=== PATIENT | male | born 1955 | race Caucasian/White ===

== ENCOUNTER → 2017-12-18 07:02 | Outpatient (CLI) | payer OTHER, SELFPAY ==
[2017-12-18 09:00] LABS: Hemoglobin A1c 7.2 % (4.2-6.3)
== END ==
PROVIDERS: Family Provider Family Medicine; PCP Family Medicine; Visit Provider Family Medicine
DX: E11.9 Type 2 diabetes mellitus without complications (principal)
CPT/HCPCS: 36415; 83036

== ENCOUNTER → 2018-06-23 06:58 | Outpatient (CLI) | payer OTHER, SELFPAY ==
[2018-06-23 07:42] LABS: ALB/GLOB Ratio 0.8 RATIO (0.9-2.4); AST(SGOT) 16 U/L (15-37); Alanine Aminotransfer ALT/SGPT 20 U/L (16-61); Albumin, Serum 3.2 g/dL (3.2-5.0); Alkaline Phosphatase 72 U/L (45-117); Anion Gap 10 (5-15); BUN 27 mg/dL (7-18); BUN/Creat Ratio 19.4 RATIO (10-20); Calcium,Total 8.8 mg/dL (8.5-10.1); Chloride 108 mmol/L (98-107); Cholesterol 113 mg/dL (200); Creatinine, Serum 1.39 mg/dL (0.70-1.30); EST Glomerular Filtration Rate 55 mL/min (>60); Est Glom Filt Rate - Afr Amer 66 mL/min (>60); Globulin 4.2 g/dL (2.2-4.2); Glucose 170 mg/dL (74-106); High Density Lipoprotein 46 mg/dL; Potassium 4.7 mmol/L (3.5-5.1); Protein, Total 7.4 g/dL (6.4-8.2); Sodium Level 141 mmol/L (136-145); Triglycerides 169 mg/dL; Very Low Density Lipoprotein 34 mg/dL (5-40)
[2018-06-23 07:47] LABS: Hemoglobin A1c 6.7 % (4.2-6.3)
== END ==
PROVIDERS: Family Provider Family Medicine; PCP Family Medicine; Referring Provider Family Medicine; Visit Provider Family Medicine
DX: E11.9 Type 2 diabetes mellitus without complications (principal); E78.5 Hyperlipidemia, unspecified
CPT/HCPCS: 36415; 80053; 80061; 83036

== ENCOUNTER → 2020-01-07 | Outpatient (CLI) | payer OTHER, SELFPAY ==
[2019-12-15 08:41] VITALS: BMI 52.0
[2020-01-07 13:48] LABS: ALB/GLOB Ratio 0.8 RATIO (0.9-2.4); AST(SGOT) 19 U/L (15-37); Alanine Aminotransfer ALT/SGPT 30 U/L (16-61); Albumin, Serum 3.3 g/dL (3.2-5.0); Alkaline Phosphatase 67 U/L (45-117); Anion Gap 7 (5-15); BUN 27 mg/dL (7-18); BUN/Creat Ratio 22.7 RATIO (10-20); Calcium,Total 8.8 mg/dL (8.5-10.1); Chloride 109 mmol/L (98-107); Cholesterol 155 mg/dL (200); Creatinine, Serum 1.19 mg/dL (0.70-1.30); EST Glomerular Filtration Rate 65 mL/min (>60); Est Glom Filt Rate - Afr Amer 79 mL/min (>60); Globulin 3.9 g/dL (2.2-4.2); Glucose 133 mg/dL (74-106); High Density Lipoprotein 44 mg/dL; Potassium 4.4 mmol/L (3.5-5.1); Protein, Total 7.2 g/dL (6.4-8.2); Sodium Level 139 mmol/L (136-145); Triglycerides 130 mg/dL; Very Low Density Lipoprotein 26 mg/dL (5-40)
[2020-01-07 14:16] LABS: Microalbumin,Random Urine 43.8 mg/L (NO RANGE EST.); Microalbumin:Creatinine Ratio 44.5 mg/g CRE (<30 mg/g CRE)
== END | disposition home or self-care (01) ==
LOC: LABSPEC 11:27
PROVIDERS: PCP Family Medicine; Referring Provider Family Medicine; Visit Provider Family Medicine
DX: E11.9 Type 2 diabetes mellitus without complications (principal)
CPT/HCPCS: 80053; 80061; 82043; 82570

== ENCOUNTER → 2020-12-19 09:01 | Outpatient (CLI) | payer OTHER, SELFPAY ==
[2020-12-19 08:30] VITALS: BMI 50.3
[2020-12-19 12:50] LABS: ALB/GLOB Ratio 0.8 RATIO (0.9-2.4); AST(SGOT) 15 U/L (15-37); Alanine Aminotransfer ALT/SGPT 20 U/L (16-61); Albumin, Serum 3.3 g/dL (3.2-5.0); Alkaline Phosphatase 70 U/L (45-117); Anion Gap 6 (5-15); BUN 18 mg/dL (7-18); BUN/Creat Ratio 17.1 RATIO (10-20); Calcium,Total 8.7 mg/dL (8.5-10.1); Chloride 110 mmol/L (98-107); Cholesterol 172 mg/dL (200); Creatinine, Serum 1.05 mg/dL (0.70-1.30); EST Glomerular Filtration Rate 75 mL/min (>60); Est Glom Filt Rate - Afr Amer 91 mL/min (>60); Glucose 116 mg/dL (74-106); High Density Lipoprotein 46 mg/dL; Potassium 4.3 mmol/L (3.5-5.1); Protein, Total 7.3 g/dL (6.4-8.2); Sodium Level 139 mmol/L (136-145); Triglycerides 140 mg/dL; Very Low Density Lipoprotein 28 mg/dL (5-40)
== END ==
PROVIDERS: PCP Family Medicine; Referring Provider Family Medicine; Visit Provider Family Medicine
DX: E11.9 Type 2 diabetes mellitus without complications (principal)
CPT/HCPCS: 36415; 80053; 80061

== ENCOUNTER → 2021-04-24 12:53 | Outpatient (CLI) | payer OTHER, SELFPAY ==
[2021-04-23 14:05] VITALS: BMI 50.3
--- NOTE | 2021-04-24 12:55 | CT_ITS ---
STUDY: CT BRAIN WITHOUT CONTRAST REASON FOR EXAM: Male, 65 years old. head injury, headache, anticoagulation -- STAT RADIATION DOSAGE (If Supplied By Facility): CTDIvol = ( 44.99 ) mGy, DLP = ( 863.60 ) mGycm TECHNIQUE: Transaxial CT imaging of the brain was performed without administration of intravenous contrast material. Individualized dose optimization techniques were used for this CT. COMPARISON: No relevant priors. FINDINGS: Normal soft tissue structures. Normal calvarium. Normal size ventricles and extra-axial spaces for the patient''s age. Normal white matter tracts of the cerebral hemispheres. Normal basal ganglia and thalami. Normal brainstem. Normal cerebellum. There is no intracranial hemorrhage. There are no findings of an acute ischemic infarction. Normal visualized paranasal sinuses. CT/Brain/Head without Contrast IMPRESSION: Normal unenhanced CT scan of the brain. Electronically Signed: Ar Parisi MD at 13:13 EDT Tel , Service support ,
== END ==
PROVIDERS: PCP Family Medicine; Referring Provider Physician Assistant; Visit Provider Physician Assistant
DX: R51.9 Headache, unspecified (principal); S09.90XA Unspecified injury of head, initial encounter; R42 Dizziness and giddiness
CPT/HCPCS: 70450

== ENCOUNTER → 2021-08-28 | Outpatient (CLI) | payer MEDICARE, SELFPAY | END | disposition home or self-care (01) | LOC: LABSPEC 10:21 | PROVIDERS: PCP Family Medicine; Visit Provider Physician Assistant Surgical | DX: U07.1 COVID-19 (principal) | CPT/HCPCS: 87635; U0005; U0003 ==

== ENCOUNTER 2021-12-18 09:33 | Outpatient (CLI) | payer MEDICARE, SELFPAY ==
[2021-12-18 12:16] LABS: Absolute Lymphocyte Count 1.54 X10^3/uL (0.83-4.51); Absolute Neutrophil Count 5.2 X10^3/uL (2.0-7.7); Basophil# 0.04 X10^3/uL; Basophil% 0.5 % (0-1); Eosinophil# 0.13 X10^3/uL; Eosinophils% 1.7 % (0-5); Hematocrit 47.3 % (40-54); Lymphocyte # 1.54 X10^3/ul (0.83-4.51); Lymphocyte % 20.7 % (19-41); Mean Corp Hgb Conc 33.8 g/dL (32-36); Mean Corpuscular Hgb 30.6 pg (27.0-32.0); Mean Corpuscular Volume 90.4 fL (80-94); Mean Platelet Vol. 11.6 fl (6.2-12.0); Monocyte# 0.51 X10^3/uL; Monocyte% 6.8 % (0-10); NRBC Flagged by Analyzer 0 % (0-5); Neutrophil % 69.9 % (47-70); Platelet Count 187 K/mm3 (150-450); RBC Distribution Width CV 12.9 % (11.6-14.6); RBC Distribution Width SD 42.6 fl (35.1-43.9); Red Blood Count 5.23 M/mm3 (4.6-6.2); White Blood Count 7.5 K/mm3 (4.4-11.0)
[2021-12-18 12:32] LABS: AST(SGOT) 18 U/L (15-37); Alanine Aminotransfer ALT/SGPT 19 U/L (16-61); Albumin, Serum 3.4 g/dL (3.2-5.0); Alkaline Phosphatase 54 U/L (45-117); Anion Gap 5 (5-15); BUN 22 mg/dL (7-18); BUN/Creat Ratio 20.4 RATIO (10-20); Calcium,Total 8.7 mg/dL (8.5-10.1); Chloride 110 mmol/L (98-107); Cholesterol 116 mg/dL (200); Creatinine, Serum 1.08 mg/dL (0.70-1.30); EST Glomerular Filtration Rate 73 mL/min (>60); Est Glom Filt Rate - Afr Amer 88 mL/min (>60); Globulin 3.5 g/dL (2.2-4.2); Glucose 159 mg/dL (74-106); High Density Lipoprotein 48 mg/dL; Potassium 3.9 mmol/L (3.5-5.1); Protein, Total 6.9 g/dL (6.4-8.2); Sodium Level 138 mmol/L (136-145); Triglycerides 148 mg/dL; Very Low Density Lipoprotein 30 mg/dL (5-40)
== END 2021-12-18 23:59 | disposition home or self-care (01) ==
LOC: BIMLAB 09:34
PROVIDERS: PCP Family Medicine; Referring Provider Family Medicine; Visit Provider Family Medicine
DX: E11.9 Type 2 diabetes mellitus without complications (principal)
CPT/HCPCS: 36415; 80053; 80061; 82043; 82570; 85025

== ENCOUNTER → 2022-03-21 | Outpatient (CLI) | payer MEDICARE, SELFPAY ==
--- NOTE | 2022-03-21 08:05 | RAD_ITS ---
STUDY: X-RAY - RIGHT SHOULDER REASON FOR EXAM: Male, 66 years old. PAIN TECHNIQUE: 4 view(s) of the shoulder. COMPARISON: None. FINDINGS: There is moderate degenerative arthrosis of the glenohumeral articulation. Prior resection of the distal portion of the right clavicle. Normal acromion. Normal humeral head and visualized proximal humerus. The soft tissue structures are unremarkable. Normal visualized pulmonary apex. RAD/Shoulder min 2 Views IMPRESSION: Moderate degree of joint space narrowing of the glenohumeral joint. Electronically Signed: Chang Peters MD at 15:14 EDT ,
--- NOTE | 2022-03-21 08:10 | RAD_ITS ---
STUDY: X-RAY - LEFT SHOULDER REASON FOR EXAM: Male, 66 years old. Shoulder pain TECHNIQUE: 4 view(s) of the shoulder. COMPARISON: None. FINDINGS: There is moderate degenerative arthrosis of the glenohumeral articulation. There is hypertrophic osteoarthrosis of the acromioclavicular joint with inferior osseous spur formation. Normal acromion. Normal humeral head and visualized proximal humerus. The soft tissue structures are unremarkable. Normal visualized pulmonary apex. RAD/Shoulder min 2 Views IMPRESSION: Degenerative changes of the left glenohumeral joint and left acromioclavicular joint. Electronically Signed: Chang Peters MD at 15:13 EDT ,
== END | disposition home or self-care (01) ==
LOC: RAD 07:59
PROVIDERS: PCP Family Medicine; Referring Provider Family Medicine; Visit Provider Family Medicine
DX: M25.511 Pain in right shoulder (principal); M25.512 Pain in left shoulder
CPT/HCPCS: 73030

== ENCOUNTER → 2022-06-19 | Outpatient (CLI) | payer MEDICARE, SELFPAY ==
[2022-06-19 09:35] LABS: Bacteria 0 SEEN /hpf (None Seen); Mucous, Urine 0 SEEN /hpf (<or=2+); Red Blood Cells-Urine 0 SEEN /hpf (0-5); Squamous Epithelial Cells - UA 0 SEEN /hpf (0-5); White Blood Cells 0 SEEN /hpf (0-5)
[2022-06-19 13:00] LABS: Color, Urine Yellow (Yellow); Glucose, Dipstick Normal (Normal); Ketone-Dipstick Negative (Negative); Leukocyte Esterase-Dipstick 25 /ul (Negative); Nitrite-Dipstick Negative (Negative); Occult Blood-Urine Negative /ul (Negative); Protein-Dipstick Negative (Negative); Urine Bilirubin Dipstick Negative (Negative); Urine Clarity Clear (Clear); Urine Urobilinogen Normal (Normal)
[2022-06-20 14:41] LABS: Microalbumin,Random Urine 6.7 mg/L (NO RANGE EST.); Microalbumin:Creatinine Ratio 22.3 mg/g CRE (<30 mg/g CRE)
== END | disposition home or self-care (01) ==
LOC: LABSPEC 09:33
PROVIDERS: PCP Family Medicine; Referring Provider Family Medicine; Visit Provider Family Medicine
DX: E11.9 Type 2 diabetes mellitus without complications (principal)
CPT/HCPCS: 81001; 82043; 82570

== ENCOUNTER → 2022-09-11 | Outpatient (CLI) | payer MEDICARE, SELFPAY ==
--- NOTE | 2022-09-11 11:55 | RAD_ITS ---
STUDY: X-RAY - LEFT ANKLE REASON FOR EXAM: Male, 67 years old. Ankle pain. TECHNIQUE: 3 view(s) of the ankle. COMPARISON: None. FINDINGS: Osteopenia. Moderate arthrosis of the tibiotalar joint. Mild arthrosis of the subtalar joint. Large superior and inferior calcaneal spurs. Mild arthrosis of the mid to. Diffuse soft tissue swelling. RAD/Ankle min 3 Views IMPRESSION: Osteopenia with calcaneal spurs, osteoarthritic changes and generalized soft tissue swelling. No acute finding. Electronically Signed: Ifeanyi Cervantes, at 13:21 EST ,
== END | disposition home or self-care (01) ==
PROVIDERS: PCP Family Medicine; Visit Provider Family Medicine
DX: M25.572 Pain in left ankle and joints of left foot (principal)
CPT/HCPCS: 73610

== ENCOUNTER → 2022-12-25 | Outpatient (CLI) | payer MEDICARE, SELFPAY ==
[2022-12-25 10:48] LABS: ALB/GLOB Ratio 0.9 RATIO (0.9-2.4); AST(SGOT) 17 U/L (15-37); Alanine Aminotransfer ALT/SGPT 15 U/L (16-61); Albumin, Serum 3.7 g/dL (3.2-5.0); Alkaline Phosphatase 68 U/L (45-117); Anion Gap 6 (5-15); BUN 26 mg/dL (7-18); BUN/Creat Ratio 20.6 RATIO (10-20); Calcium,Total 9.3 mg/dL (8.5-10.1); Chloride 107 mmol/L (98-107); Cholesterol 113 mg/dL (200); Creatinine, Serum 1.26 mg/dL (0.70-1.30); EST Glomerular Filtration Rate 61 mL/min (>60); Est Glom Filt Rate - Afr Amer 73 mL/min (>60); Globulin 3.9 g/dL (2.2-4.2); Glucose 150 mg/dL (74-106); High Density Lipoprotein 51 mg/dL; Potassium 4.3 mmol/L (3.5-5.1); Protein, Total 7.6 g/dL (6.4-8.2); Sodium Level 134 mmol/L (136-145); Triglycerides 106 mg/dL; Very Low Density Lipoprotein 21 mg/dL (5-40)
== END | disposition home or self-care (01) ==
LOC: BIMLAB 09:12
PROVIDERS: PCP Family Medicine; Referring Provider Family Medicine; Visit Provider Family Medicine
DX: E66.01 Morbid (severe) obesity due to excess calories (principal); Z68.43 Body mass index [BMI] 50.0-59.9, adult; E11.9 Type 2 diabetes mellitus without complications; M54.9 Dorsalgia, unspecified; G89.29 Other chronic pain
CPT/HCPCS: 36415; 80053; 80061

== ENCOUNTER 2023-01-29 11:30 | Outpatient (RCR) | payer MEDICARE, SELFPAY ==
--- NOTE | 2022-12-27 15:59 | HP.PTEVAL ---
Patient's Visit Information CONCHA LICEA is a 67 year old M referred to Physical Therapy by Dr. Kirit Evangelista MD with a diagnosis of UNILATERAL PROMARY OSTEOARTHRITIS ,LEFT HIP MORBID OBESITY. Date of Evaluation: 12/27/22 Physical Therapist: Ashish Beaulieu, PT, Cert MDT, OCS - Visit Plan Frequency: 3x /Week Duration: 6 Weeks Plan: PT INTERVETIONS AQUATIC THERAPY FOR ROM ,FLEXABLITY HIPS ,PRE'S QUADS/HAMS/HIP AND ENDURANCE PROGRAM - Subjective This 67 y/o male presents to physical therapy for left hip pain arthritis . Patient has had pain left ~ 1 year last December which progressively worse then in May pain progressively worse difficulty to walk. Initially ,seen family recommended PT for Pre- Rehab and goal is to have THR. Patient had x-rays showed DJD. Patient has had pain management back pain which had epidural injections has helped some. Patient had fall Aug 2022 which aggravated hip. Location left groin and right. Aggravating factors walking/standing ,elevation from chair ,unable to squat and kneeling and stairs one step time. Patient c/o weakness in hips with walking and less pain. Patient was working out at [employer]. Patient denies paresthesia/tingling. Patient pain affects sleeping. Pain meloxicam. Patient goal to have CHRIS .PMH: BLE TKA. SOCAIL: . VOCATION: retired. - Pain Left Hip Pain Intensity (Out of 10): 8 Pain Intensity Range: 10 Right Hip Pain Intensity (Out of 10): 8 Pain Intensity Range: 10 - Objective POSTURE: mild forward posture. GAIT: reciprocal pattern forward posture antalgic gait decrease slow jolie. NEURO: denies paresthesia/tingling. STAIRS: one step at time with rails. AROM: hip flexion right 90 degrees ,left 80 degrees ,IR 0 degrees ,hip abduction right 30 degrees ,left 20 degrees. MMT: quads/hams 4/5, (peak force) hip flexion 25.7 right ,left 21.8 ,hip abduction right 10.1, left 5.8 - Special Tests R Hip Scour: Positive L Hip Scour: Positive - Balance/Special Test Scores Lower Extremity Functional Score: 18 - Goals Goal 1:: Patient to be I with Aquatic therapy Goal Time Frame: 4-6 Weeks Goal 2:: Patient to demonstrate 50% improvement with improved function with less pain Goal Time Frame: 4-6 Weeks Goal 3:: Patient to improve AROM hip flexion/abduction by 10 degrees to improve function and stairs Goal Time Frame: 4-6 Weeks Goal 4:: Patient to improve peak force of hips by 5-10 to improve gait and elevation from chair. Goal Time Frame: 4-6 Weeks Goal 5:: Patient to improve LFES score by 5 points to improve QOL and function Goal Time Frame: 4-6 Weeks - Rehabilitation Potential Physical Therapy Diagnosis: This patient has left hip pain due to DJD with decrease ROM ,strength ,pain impairs walking ,standing and deficits with ADLS and housework tasks thus benefit from skilled PT Rehabilitation Potential: Good - Anticipated Interventions Patient/Client Instruction: Educate patient on: Condition For the Purpose of:: To decrease pain, To increase ROM, To improve muscle performance and motor function, To improve ability to perform ADL's, To increase tolerance to activity/condition/position, To improve ability of physical actions for home/community/work/leisure, To improve gait and locomotor functions, To improve health of tissue, To decrease soft tissue restriction, To increase flexibility/ROM, To improve endurance, To improve balance Therapeutic Exercise to Include: Strength training, Endurance training, Balance training, Flexibilty training, In an aquatic setting, Passive ROM, Active ROM Comment: LEFT HIP/QUADS/HAMS For the Purpose of:: To decrease pain, To increase ROM, To improve muscle performance and motor function, To improve ability to perform ADL's, To increase tolerance to activity/condition/position, To improve ability of physical actions for home/community/work/leisure, To improve health of tissue, To decrease soft tissue restriction, To increase flexibility/ROM, To prevent re-injury Thank you for the opportunity to evaluate your patient. For Medicare and Medicare HMO plans, please review the plan of care and approve it. It will need to be FAXED BACK to us at [phone] for Medicare purposes. For Medicare only, by signing this I certify the plan of care. Please let me know if there are questions or concerns regarding this plan of care. Physician Signature: Date:
--- NOTE | 2023-01-29 11:51 | HP.PTDCSUM ---
It has been my pleasure to treat CONCHA LICEA referred by Dr. Kirit Evangelista MD, with the diagnosis of UNILATERAL PROMARY OSTEOARTHRITIS ,LEFT HIP MORBID OBESITY for a total of 9 visit(s). Discharge Date: 01/29/23 Please see the following information for a summary of their discharge status. Subjective: Patient realize situation ,patient lost 25 # since beginning of year. Patient in AM Left Hip Pain Intensity (Out of 10): 3 Right Hip Pain Intensity (Out of 10): 3 LB Pain Intensity (Out of 10): 3 % Improvement: 40 Objective/Function: POSTURE: mild forward posture. GAIT: reciprocal pattern forward posture antalgic gait decrease slow jolie. NEURO: denies paresthesia/tingling. STAIRS: one step at time with rails. AROM: hip flexion right 90 degrees ,left 80 degrees ,IR 0 degrees ,hip abduction right 30 degrees ,left 20 degrees. MMT: quads/hams 4/5, (peak force) hip flexion 30.7 right ,left 26.8 ,hip abduction right 26.1, left 25.8 Goal 1:: Patient to be I with Aquatic therapy Goal 2:: Patient to demonstrate 50% improvement with improved function with less pain Goal Progress: Goal Met Goal 3:: Patient to improve AROM hip flexion/abduction by 10 degrees to improve function and stairs Goal Progress: Progressing Goal 4:: Patient to improve peak force of hips by 5-10 to improve gait and elevation from chair. Goal Progress: Goal Met Goal 5:: Patient to improve LFES score by 5 points to improve QOL and function Goal Progress: Goal Met Plan: D/'C TO HEP Discharge Comments: D/C HEP If there are questions or concerns regarding this patient's physical therapy, please feel free to call me at [phone]. Thank you for the referral of this patient. Sincerely, Ashish Beaulieu, PT, Cert MDT, OCS Balance/Gait/Functional tests - Balance/Special Test Scores Lower Extremity Functional Score: 42
== END 2023-01-29 19:00 | disposition home or self-care (01) ==
LOC: PT 11:30
PROVIDERS: PCP Family Medicine; Referring Provider Specialist; Visit Provider Specialist
DX: M16.12 Unilateral primary osteoarthritis, left hip (principal); E66.01 Morbid (severe) obesity due to excess calories
CPT/HCPCS: 97113; 97162; 97530

== ENCOUNTER → 2023-04-18 | Outpatient (CLI) | payer MEDICARE, SELFPAY ==
--- NOTE | 2023-04-18 07:28 | ECHOD_ITS ---
Reason For Study: preprocedural CV exam Procedure This was a 2D Doppler, Color Flow transthoracic echocardiogram. The study was technically difficult. Due to body habitus. Exam performed in department. Left Ventricle Normal LV size. Left ventricular systolic function is normal. The estimated ejection fraction is 60 %. No regional wall motion abnormalities noted. Right Ventricle Normal RV size. Normal systolic function. Atria The left atrium is severely enlarged. Normal right atrium. Mitral Valve Normal mitral valve. Tricuspid Valve Normal tricuspid valve. Aortic Valve Normal aortic valve. Pulmonic Valve Normal pulmonic valve. Great Vessels Normal aortic root. The pulmonary artery is normal size. Normal inferior vena cava. Pericardium/Pleural No pericardial effusion. Medication Diluted definity 4.0ml given slow IV push to enhance endocardial definition. MMode/2D Measurements & Calculations LVIDd: 5.2 cm IVSd: 1.1 cm Ao root diam: 3.6 cm LVIDs: 3.4 cm LVPWd: 1.1 cm RVDd: 3.4 cm FS: 34.0 % LAV(MOD-bp): 134.4 ml LVAd ap4: 29.2 cm2 LVAd ap2: 26.0 cm2 LAV(MOD-bp) Indexed: 50.9 ml/m2 LVLd ap4: 8.7 cm LVLd ap2: 8.4 cm LAV(MOD-sp2): 102.1 ml EDV(MOD-sp4): 83.9 ml EDV(MOD-sp2): 68.9 ml LAV(MOD-sp4): 156.4 ml EDV(sp4-el): 82.8 ml EDV(sp2-el): 68.3 ml LVAs ap4: 15.0 cm2 LVAs ap2: 12.9 cm2 LVLs ap4: 6.7 cm LVLs ap2: 6.8 cm ESV(MOD-sp4): 30.6 ml ESV(MOD-sp2): 20.3 ml ESV(sp4-el): 28.4 ml ESV(sp2-el): 20.7 ml EF(MOD-sp4): 63.5 % EF(MOD-sp2): 70.5 % EF(sp4-el): 65.7 % SV(MOD-sp4): 53.2 ml SV(MOD-sp2): 48.6 ml SV(sp4-el): 54.4 ml LA A4 area: 35.3 cm2 LA dimension(2D): 4.9 cm Doppler Measurements & Calculations MV E max shima: 80.5 cm/sec Ao V2 max: 116.6 cm/sec LV V1 max: 118.9 cm/sec Ao max P.6 mmHg LV V1 max P.7 mmHg Ao V2 mean: 81.3 cm/sec LV V1 mean P.0 mmHg Ao mean P.1 mmHg LV V1 mean: 81.5 cm/sec Ao V2 VTI: 24.4 cm LV V1 VTI: 22.0 cm AV (velocity ratio): 0.90 PA V2 max: 77.3 cm/sec PA V2 mean: 54.5 cm/sec ECHO/Echo Complete W/ Contrast Interpretation Summary Normal LV size. Left ventricular systolic function is normal. The estimated ejection fraction is 60 %. The left atrium is severely enlarged. Contrast injection was performed. Ordering Physician: Mari Taylor Referring Physician: Chad De La Rosa Performed By: Soumya Castillo, RICKI, RVT
--- NOTE | 2023-04-18 13:38 | STRESSREP ---
Stress Test Report Pharmacologic myocardial perfusion stress test. 67-year-old man for preoperative evaluation Resting EKG demonstrates atrial fibrillation with a rate of 108 bpm. Resting blood pressure is 138/82 mmHg. 0.4 mg of regadenoson was infused per usual protocol followed by rapid intravenous saline flush injection. Continuous EKG monitoring was performed. The maximum heart rate was 118 bpm which was 77% of max impacted heart rate the maximum workload was 1 metabolic equivalent. At rest there were no ST or T wave changes noted to suggest ischemia and at peak infusion nonspecific ST changes were noted which did not meet the criteria for ischemia. No clinical angina is noted. The final blood pressure was 128/82 mmHg. Myocardial perfusion protocol. 14.9 mCi of technetium 99m sestamibi was injected at rest. 0.4 mg of regadenoson was infused per usual protocol. At peak infusion 45.0 mCi of technetium 99m sestamibi was injected stress images were obtained stress and rest images were reconstructed and compared in the short axis vertical long and horizontal long axis. Gated images were also obtained. Perfusion SPECT analysis: Review of the stress images demonstrate normal uptake of tracer noted in all areas of the myocardium. The resting images similar demonstrated normal uptake of tracer noted in all areas of the myocardium. No areas of reversibility are noted to suggest ischemia and no previous infarct is noted. Gated SPECT analysis: The gated ejection fraction is 58%. Conclusion: Normal pharmacologic myocardial perfusion stress test. Preserved ejection fraction.
== END | disposition home or self-care (01) ==
PROVIDERS: PCP Family Medicine; Referring Provider Physician Assistant Medical; Visit Provider Physician Assistant Medical
DX: Z01.810 Encounter for preprocedural cardiovascular examination (principal); I48.91 Unspecified atrial fibrillation
CPT/HCPCS: 78452; 93017; 93306; A9500; Q9957; A4216; C8929; J2785

== ENCOUNTER 2023-05-08 16:30 | Outpatient (RCR) | payer MEDICARE, SELFPAY ==
--- NOTE | 2023-04-25 10:31 | HP.PTEVAL_ITS ---
Patient's Visit Information Visit Information Visit Information: CONCHA LICEA is a 67 year old M referred to Physical Therapy by Dr. Kirit Evangelista MD with a diagnosis of Left THR Anterior Approach 04/22/23. Date of Evaluation: 04/25/23 Physical Therapist: Arlene Mcgill DPT Visit Plan Frequency: 2x /Week Duration: 4 Weeks Plan: Left THR 04/22/23- Functional mobility HEP Given IE: weight shifts in all directions Subjective Subjective: Left THR 04/22/[address] Evangelista- stayed over night at [facility]- went home the next day- single story apt- just a single step to enter- no issues- fully I prior to surgery- driving prior to surgery. No AD prior to surgery- he does have a cane at home. He has had both knees replaced so he knows all the ways to do things. He has lost 161 lbs in the 5 years. Worst in last 24 hours: 4/10 Agg: twisting. Between 1-2 mostly just around the incision. Best: 0/10 Eases: sitting and resting. Anterior Approach- he was told not to get in the tub or hot tub- Friday can take off the bandage- can drive as of tomorrow. No radiating pain- slight numbness around the incision- no N/T in the toes. Sleep: slightly disturbed- due to the incision- in bed. He is currently taking Tramadol. He is normally pretty active- he likes to golf. PMHx/Meds: see chart Objective Objective: Posture: FH, RS- can correct with verbal cues Gait: slightly antalgic- using a standard walker but more carrying it then actually using it. No loss of balance- PT encouraged cane use instead of standard walker HR/TR: able with UE A SLS: weight shift but unable to SLS without LOB Observation: incision covered with bandage- mild bruising- no s/s of infection ROM: WFL in all planes Strength: Core: fair, Hip: Flexion: 20 Extn: 53 Add: 4/5 Abd: 4/5, Knee: 4+/5, Ankle: 4+/5 Flex: HS: moderate, Gastroc: moderate Balance/Special Test Scores Lower Extremity Functional Score: 24 WOMAC Total Score: 25 WOMAC Percentatge: 73.9600 Goals Goal 1:: Patient will be I with HEP and progression Goal Time Frame: 4-6 Weeks Goal 2:: Patient will ambulate >300 feet with a normalized gait pattern Goal Time Frame: 4-6 Weeks Goal 3:: Patient will asc/desc 8 recip with 1 HR Goal Time Frame: 4-6 Weeks Goal 4:: Patient will report 80% improvement Goal Time Frame: 4-6 Weeks Rehabilitation Potential Physical Therapy Diagnosis: Patient presents with hypomobility- he has decreased LE and core strength/stabilization, flex and muscular endurance s/p left THR leading to abnormal gait pattern and decreased ability to perform ADL's. Rehabilitation Potential: Good Anticipated Interventions Patient/Client Instruction: Educate patient on: Benefits of Fitness Program Therapeutic Exercise to Include: Strength training, Endurance training, Coordination, Agility training, Body mechanics, Postural training, Flexibilty training, Gait and locomotor training, Neuromotor development, Passive ROM, Active ROM, Dynamic Lumbar Stabilization and Scapular Strength/Stabilization For the Purpose of:: To improve muscle performance and motor function TENS: Yes Cryotherapy (ice pack, ice massage): Yes Thermo therapy (hot pack): Yes Text: Thank you for the opportunity to evaluate your patient. For Medicare and Medicare HMO plans, please review the plan of care and approve it. It will need to be FAXED BACK to us at [phone] for Medicare purposes. For Medicare only, by signing this I certify the plan of care. Please let me know if there are questions or concerns regarding this plan of care. Physician Signature: Date:
== END 2023-05-08 19:00 | disposition home or self-care (01) ==
LOC: PT 16:30
PROVIDERS: PCP Family Medicine; Referring Provider Specialist; Visit Provider Specialist
DX: M16.12 Unilateral primary osteoarthritis, left hip (principal); Z96.642 Presence of left artificial hip joint; Z47.1 Aftercare following joint replacement surgery
CPT/HCPCS: 97110; 97162